=== PATIENT | male | born 1940 | race Caucasian/White ===

== ENCOUNTER → 2017-01-11 | Outpatient (CLI) | payer MEDICARE | LOC: MW.CHUR 11:07 | PROVIDERS: ATTEND Urology | DX: N40.0 Benign prostatic hyperplasia without lower urinary tract symptoms (principal); R97.20 Elevated prostate specific antigen [PSA] | CPT/HCPCS: 36415; 84153; G0463 ==

== ENCOUNTER 2025-08-31 09:12 | Inpatient (IN) | payer MEDICARE ==
[2025-08-31] MEDS ORDERED: Sodium Chloride 0.9% 2.5 ML Syringe FLUSH PRN ×2 (09:26→12:15)
[2025-08-31] MEDS ORDERED: Sodium Chloride 0.9% 10 ML Syringe FLUSH PRN ×2 (09:26→12:15)
[2025-08-31 09:38] LABS: MEAN PLATELET VOLUME 11.9 fL (9.4-12.4); NRBC ABSOLUTE 0.00 K/uL (0.00-0.02); NRBC PERCENT 0.0 /100WBC (0.0-0.2); PLATELET COUNT,PLT 96 K/uL (150-400); RED BLOOD CELL COUNT 4.04 M/uL (4.52-5.90); WHITE BLOOD CELL COUNT,WBC 1.49 K/uL (3.9-11.3)
[2025-08-31 09:54] LABS: INR 1.22 (0.86-1.11)
[2025-08-31] MEDS: Lactated Ringers 2,000 ML IV SCH (09:59)
[2025-08-31 10:00] LABS: LACTIC ACID 1.6 mmol/L (0.4-2.0)
[2025-08-31 10:01] LABS: A/G RATIO 0.9 (0.9-1.6); ALANINE AMINOTRANSFERASE,ALT 24 IU/L (14-63); ASPARTATE AMNIOTRANSFERASE,AST 24 IU/L (15-37); BILIRUBIN TOTAL 1.5 mg/dL (0.2-1.0); BLOOD UREA NITROGEN,BUN 18 mg/dL (7.0-18.0); CARBON DIOXIDE,CO2 30.2 mmol/L (21.0-32.0); CHLORIDE,CL 98 mmol/L (98-107); CREATININE 0.8 mg/dL (0.8-1.3); GLUCOSE RANDOM 125 mg/dL (74-106); POTASSIUM,K 4.0 mmol/L (3.5-5.1); PROTEIN TOTAL,TP 5.6 g/dL (6.4-8.2); SODIUM,NA 134 mmol/L (136-148)
[2025-08-31 10:05] LABS: ESTIMATED GFR 87 mL/min (>60)
[2025-08-31] MEDS: Iopamidol 755 Mg/ML 100 ML Bottle IVPUSH ONE (10:08)
[2025-08-31 10:15] LABS: LYMPHOCYTES ABSOLUTE MAN 0.58 K/uL (1.00-4.80); LYMPHOCYTES PERCENT MAN 39 % (24-44); MONOCYTES ABSOLUTE MAN 0.10 K/uL (0.00-0.80); MONOCYTES PERCENT MAN 7 % (0-8); SEG NEUTROPHILS ABSOLUTE MAN 0.80 K/uL (1.80-7.70); SEG NEUTROPHILS PERCENT MAN 54 % (41-71)
[2025-08-31 11:16] LABS: APPEARANCE,URINE CLEAR; GLUCOSE,URINE NEGATIVE (NEGATIVE); OCCULT BLOOD,URINE NEGATIVE (NEGATIVE)
[2025-08-31] MEDS: metroNIDAZOLE/Normal Saline 500 MG in Premix Bag 1 BAG IV ONE (11:31)
[2025-08-31] MEDS: Lactated Ringers 1,000 ML IV SCH (13:38)
[2025-08-31] MEDS: Norepinephrine Bit/D5W Premix 4 MG/250 ML BAG IV SCH (14:26)
[2025-08-31] MEDS: Diltiazem 120 MG Cap.CD PO SCH (15:27)
[2025-08-31] MEDS: Calcium Carbonate/Vitamin D3 1500 MG-400 Units Tab PO SCH (15:28)
[2025-08-31] MEDS: ABIRATERONE ACETATE 500 MG PO SCH (15:29)
[2025-08-31] MEDS: Phenol 1.4% Oral Spray 177 ML Bottle MUCMEM PRN (15:36)
[2025-08-31] MEDS: Pantoprazole 40 MG in Sodium Chloride 0.9% 20 ML IVPUSH SCH (16:13)
[2025-08-31] MEDS: Nystatin Susp 100,000 Unit/ML 5 ML UD Cup PO SCH (18:21)
[2025-08-31] MEDS: metroNIDAZOLE/Normal Saline 500 MG in Premix Bag 1 BAG IV SCH (18:30)
[2025-09-01] MEDS: Ondansetron 4 MG/2 ML SDV IVPUSH PRN (00:44)
[2025-09-01 05:51] LABS: MEAN PLATELET VOLUME 11.6 fL (9.4-12.4); NRBC ABSOLUTE 0.00 K/uL (0.00-0.02); NRBC PERCENT 0.0 /100WBC (0.0-0.2); PLATELET COUNT,PLT 84 K/uL (150-400); RED BLOOD CELL COUNT 3.41 M/uL (4.52-5.90); WHITE BLOOD CELL COUNT,WBC 1.24 K/uL (3.9-11.3)
[2025-09-01 06:14] LABS: A/G RATIO 0.8 (0.9-1.6); ALANINE AMINOTRANSFERASE,ALT 20.0 IU/L (14-63); ASPARTATE AMNIOTRANSFERASE,AST 25.0 IU/L (15-37); BILIRUBIN TOTAL 1.8 mg/dL (0.2-1.0); BLOOD UREA NITROGEN,BUN 12.0 mg/dL (7.0-18.0); CARBON DIOXIDE,CO2 29.7 mmol/L (21.0-32.0); CHLORIDE,CL 98.0 mmol/L (98-107); CREATININE 0.8 mg/dL (0.8-1.3); EST CRCL DRUG DOSING (CG) 70.97 mL/min; GLUCOSE RANDOM 102.0 mg/dL (74-106); POTASSIUM,K 3.2 mmol/L (3.5-5.1); PROTEIN TOTAL,TP 4.6 g/dL (6.4-8.2); SODIUM,NA 132.0 mmol/L (136-148)
[2025-09-01 06:15] LABS: ESTIMATED GFR 87.0 mL/min (>60)
[2025-09-01] MEDS: ABIRATERONE ACETATE 500 MG PO SCH (07:33)
[2025-09-01 07:43] LABS: SEG NEUTROPHILS ABSOLUTE MAN 0.63 K/uL (1.80-7.70); SEG NEUTROPHILS PERCENT MAN 51 % (41-71)
[2025-09-01 07:44] LABS: LYMPHOCYTES ABSOLUTE MAN 0.45 K/uL (1.00-4.80); LYMPHOCYTES PERCENT MAN 36 % (24-44); MONOCYTES ABSOLUTE MAN 0.16 K/uL (0.00-0.80); MONOCYTES PERCENT MAN 13 % (0-8)
[2025-09-01] MEDS ORDERED: Magnesium Sulfate 2 GM/50 mL 2 GM in Premix Bag 1 BAG IV SCH (08:30)
[2025-09-01] MEDS ORDERED: 50% Dextrose in Water 50 ML Syringe IVPUSH PRN (08:47)
[2025-09-01] MEDS: MAGNESIUM SULF IV ONE (09:10)
[2025-09-01] MEDS: POTASSIUM PHOSPHATES IV ONE (09:10)
[2025-09-01] MEDS: [UNRECOGNIZED DRUG - OTHER] IV ONE (09:10)
[2025-09-02 05:07] LABS: BORDETELLA PARAPERT IS1001 Not Detected (Not Detected)
[2025-09-02 06:33] LABS: MEAN PLATELET VOLUME 11.6 fL (9.4-12.4); NRBC PERCENT 0.0 /100WBC (0.0-0.2); PLATELET COUNT,PLT 78 K/uL (150-400); RED BLOOD CELL COUNT 3.10 M/uL (4.52-5.90); WHITE BLOOD CELL COUNT,WBC 1.22 K/uL (3.9-11.3)
[2025-09-02 07:03] LABS: A/G RATIO 0.7 (0.9-1.6); ALANINE AMINOTRANSFERASE,ALT 24.0 IU/L (14-63); ASPARTATE AMNIOTRANSFERASE,AST 34.0 IU/L (15-37); BILIRUBIN TOTAL 0.8 mg/dL (0.2-1.0); BLOOD UREA NITROGEN,BUN 10.0 mg/dL (7.0-18.0); CARBON DIOXIDE,CO2 27.8 mmol/L (21.0-32.0); CHLORIDE,CL 100.0 mmol/L (98-107); CREATININE 0.7 mg/dL (0.8-1.3); EST CRCL DRUG DOSING (CG) 81.11 mL/min; GLUCOSE RANDOM 106.0 mg/dL (74-106); PHOSPHORUS 1.4 mg/dL (2.6-4.7); POTASSIUM,K 3.5 mmol/L (3.5-5.1); PROTEIN TOTAL,TP 4.4 g/dL (6.4-8.2); SODIUM,NA 132.0 mmol/L (136-148)
[2025-09-02 07:09] LABS: ESTIMATED GFR 91.0 mL/min (>60)
[2025-09-02 08:11] LABS: BAND ABSOLUTE MAN 0.24; BAND PERCENT MAN 20 %; LYMPHOCYTES ABSOLUTE MAN 0.39 K/uL (1.00-4.80); LYMPHOCYTES PERCENT MAN 32 % (24-44); SEG NEUTROPHILS ABSOLUTE MAN 0.44 K/uL (1.80-7.70); SEG NEUTROPHILS PERCENT MAN 36 % (41-71)
[2025-09-02 08:12] LABS: METAMYELOCYTE ABSOLUTE MAN 0.04; METAMYELOCYTE PERCENT MAN 3 %; MONOCYTES ABSOLUTE MAN 0.11 K/uL (0.00-0.80); MONOCYTES PERCENT MAN 9 % (0-8); PLATELET COUNT ESTIMATE DECREASED; REACTIVE LYMPHOCYTES FEW
[2025-09-02] MEDS: Potassium Phosphates 45 MMOLE in Sodium Chloride 0.9% 500 ML IV ONE (09:26)
[2025-09-03 05:26] LABS: MEAN PLATELET VOLUME 11.5 fL (9.4-12.4); NRBC ABSOLUTE 0.00 K/uL (0.00-0.02); NRBC PERCENT 0.0 /100WBC (0.0-0.2); PLATELET COUNT,PLT 109 K/uL (150-400); RED BLOOD CELL COUNT 3.12 M/uL (4.52-5.90); WHITE BLOOD CELL COUNT,WBC 1.40 K/uL (3.9-11.3)
[2025-09-03 05:50] LABS: A/G RATIO 0.7 (0.9-1.6); ALANINE AMINOTRANSFERASE,ALT 25.0 IU/L (14-63); ASPARTATE AMNIOTRANSFERASE,AST 39.0 IU/L (15-37); BILIRUBIN TOTAL 0.8 mg/dL (0.2-1.0); BLOOD UREA NITROGEN,BUN 8.0 mg/dL (7.0-18.0); CARBON DIOXIDE,CO2 26.7 mmol/L (21.0-32.0); CHLORIDE,CL 101.0 mmol/L (98-107); CREATININE 0.6 mg/dL (0.8-1.3); EST CRCL DRUG DOSING (CG) 94.63 mL/min; GLUCOSE RANDOM 97.0 mg/dL (74-106); PHOSPHORUS 1.2 mg/dL (2.6-4.7); POTASSIUM,K 2.9 mmol/L (3.5-5.1); PROTEIN TOTAL,TP 4.3 g/dL (6.4-8.2); SODIUM,NA 133.0 mmol/L (136-148)
[2025-09-03 06:03] LABS: BAND ABSOLUTE MAN 0.08; BAND PERCENT MAN 6 %; LYMPHOCYTES ABSOLUTE MAN 0.39 K/uL (1.00-4.80); LYMPHOCYTES PERCENT MAN 28 % (24-44); METAMYELOCYTE ABSOLUTE MAN 0.03; METAMYELOCYTE PERCENT MAN 2 %; MONOCYTES ABSOLUTE MAN 0.14 K/uL (0.00-0.80); MONOCYTES PERCENT MAN 10 % (0-8); REACTIVE LYMPHOCYTES FEW; SEG NEUTROPHILS ABSOLUTE MAN 0.76 K/uL (1.80-7.70); SEG NEUTROPHILS PERCENT MAN 54 % (41-71)
[2025-09-03 06:19] LABS: ESTIMATED GFR 95.0 mL/min (>60)
[2025-09-03] MEDS ORDERED: Lidocaine 2% 30 ML, Alum Hydrox/Mag Hydrox/Simeth 30 ML, diphenhydrAMINE 75 MG PO PRN (10:09)
[2025-09-03] MEDS: Potassium Phosphates 30 MMOLE in Sodium Chloride 0.9% 500 ML IV SCH (11:02)
[2025-09-03] MEDS ORDERED: Potassium Chloride 20 MEQ Tab.ER PO ONE (14:00)
[2025-09-03 17:39] LABS: BLOOD UREA NITROGEN,BUN 7.0 mg/dL (7.0-18.0); CARBON DIOXIDE,CO2 26.3 mmol/L (21.0-32.0); CHLORIDE,CL 100.0 mmol/L (98-107); CREATININE 0.7 mg/dL (0.8-1.3); EST CRCL DRUG DOSING (CG) 81.11 mL/min; GLUCOSE RANDOM 118.0 mg/dL (74-106); PHOSPHORUS 2.4 mg/dL (2.6-4.7); POTASSIUM,K 3.8 mmol/L (3.5-5.1); SODIUM,NA 132.0 mmol/L (136-148)
[2025-09-03 17:40] LABS: ESTIMATED GFR 91.0 mL/min (>60)
[2025-09-03] MEDS: Lidocaine 2% 30 ML, Alum Hydrox/Mag Hydrox/Simeth 30 ML, diphenhydrAMINE 75 MG PO SCH (18:20)
[2025-09-04] MEDS: Lidocaine 2% 30 ML, Alum Hydrox/Mag Hydrox/Simeth 30 ML, diphenhydrAMINE 75 MG PO SCH (07:27)
[2025-09-04] MEDS: Relugolix [Orgovyx] 120 MG Tablet PO SCH (07:29)
[2025-09-04 07:40] LABS: MEAN PLATELET VOLUME 11.1 fL (9.4-12.4); NRBC ABSOLUTE 0.00 K/uL (0.00-0.02); NRBC PERCENT 0.0 /100WBC (0.0-0.2); PLATELET COUNT,PLT 141 K/uL (150-400); RED BLOOD CELL COUNT 3.43 M/uL (4.52-5.90); WHITE BLOOD CELL COUNT,WBC 1.86 K/uL (3.9-11.3)
[2025-09-04 07:58] LABS: BLOOD UREA NITROGEN,BUN 6.0 mg/dL (7.0-18.0); CARBON DIOXIDE,CO2 29.1 mmol/L (21.0-32.0); CHLORIDE,CL 103.0 mmol/L (98-107); CREATININE 0.7 mg/dL (0.8-1.3); EST CRCL DRUG DOSING (CG) 81.11 mL/min; GLUCOSE RANDOM 103.0 mg/dL (74-106); PHOSPHORUS 1.8 mg/dL (2.6-4.7); POTASSIUM,K 3.6 mmol/L (3.5-5.1); SODIUM,NA 137.0 mmol/L (136-148)
[2025-09-04 08:01] LABS: ESTIMATED GFR 91.0 mL/min (>60)
[2025-09-04 09:49] LABS: BAND ABSOLUTE MAN 0.04; BAND PERCENT MAN 2 %; LYMPHOCYTES ABSOLUTE MAN 0.20 K/uL (1.00-4.80); LYMPHOCYTES PERCENT MAN 11 % (24-44); MONOCYTES ABSOLUTE MAN 0.35 K/uL (0.00-0.80); MONOCYTES PERCENT MAN 19 % (0-8); MYELOCYTE ABSOLUTE MAN 0.02; MYELOCYTE PERCENT MAN 1 %; SEG NEUTROPHILS ABSOLUTE MAN 1.25 K/uL (1.80-7.70); SEG NEUTROPHILS PERCENT MAN 67 % (41-71)
[2025-09-04] MEDS: Diltiazem 120 MG Cap.CD PO ONE (10:04)
[2025-09-04] MEDS: Phosphorus #1 250 MG Tab PO SCH (10:09)
[2025-09-04] MEDS ORDERED: Phosphorus #1 250 MG Tab PO SCH (12:00)
[2025-09-05 05:42] LABS: MEAN PLATELET VOLUME 10.8 fL (9.4-12.4); NRBC ABSOLUTE 0.00 K/uL (0.00-0.02); NRBC PERCENT 0.0 /100WBC (0.0-0.2); PLATELET COUNT,PLT 145 K/uL (150-400); RED BLOOD CELL COUNT 3.28 M/uL (4.52-5.90); WHITE BLOOD CELL COUNT,WBC 2.24 K/uL (3.9-11.3)
[2025-09-05 06:10] LABS: A/G RATIO 0.6 (0.9-1.6); ALANINE AMINOTRANSFERASE,ALT 36.0 IU/L (14-63); ASPARTATE AMNIOTRANSFERASE,AST 54.0 IU/L (15-37); BILIRUBIN TOTAL 0.7 mg/dL (0.2-1.0); BLOOD UREA NITROGEN,BUN 7.0 mg/dL (7.0-18.0); CARBON DIOXIDE,CO2 28.4 mmol/L (21.0-32.0); CHLORIDE,CL 100.0 mmol/L (98-107); CREATININE 0.6 mg/dL (0.8-1.3); EST CRCL DRUG DOSING (CG) 94.63 mL/min; GLUCOSE RANDOM 101.0 mg/dL (74-106); PHOSPHORUS 1.7 mg/dL (2.6-4.7); POTASSIUM,K 2.8 mmol/L (3.5-5.1); PROTEIN TOTAL,TP 4.6 g/dL (6.4-8.2); SODIUM,NA 134.0 mmol/L (136-148)
[2025-09-05 06:12] LABS: ESTIMATED GFR 95.0 mL/min (>60)
[2025-09-05 06:38] LABS: BAND ABSOLUTE MAN 0.09; BAND PERCENT MAN 4 %; SEG NEUTROPHILS ABSOLUTE MAN 1.10 K/uL (1.80-7.70); SEG NEUTROPHILS PERCENT MAN 49 % (41-71)
[2025-09-05 06:39] LABS: METAMYELOCYTE ABSOLUTE MAN 0.07; METAMYELOCYTE PERCENT MAN 3 %; MONOCYTES ABSOLUTE MAN 0.60 K/uL (0.00-0.80); MONOCYTES PERCENT MAN 27 % (0-8)
[2025-09-05 06:40] LABS: LYMPHOCYTES ABSOLUTE MAN 0.38 K/uL (1.00-4.80); LYMPHOCYTES PERCENT MAN 17 % (24-44)
[2025-09-05 08:09] LABS: BLOOD UREA NITROGEN,BUN 7.0 mg/dL (7.0-18.0); CARBON DIOXIDE,CO2 27.4 mmol/L (21.0-32.0); CHLORIDE,CL 99.0 mmol/L (98-107); CREATININE 0.7 mg/dL (0.8-1.3); EST CRCL DRUG DOSING (CG) 81.11 mL/min; GLUCOSE RANDOM 130.0 mg/dL (74-106); POTASSIUM,K 2.9 mmol/L (3.5-5.1); SODIUM,NA 133.0 mmol/L (136-148)
[2025-09-05 08:10] LABS: ESTIMATED GFR 91.0 mL/min (>60)
[2025-09-05] MEDS: Diltiazem 120 MG Cap.CD PO SCH (08:17)
[2025-09-05] MEDS: Potassium Chloride 20 MEQ Tab.ER PO ONE (10:19)
[2025-09-05] MEDS ORDERED: Metoprolol Tartrate 5 MG/5 ML SDV IVPUSH PRN (14:05)
[2025-09-05 23:05] LABS: A/G RATIO 0.7 (0.9-1.6); ALANINE AMINOTRANSFERASE,ALT 37.0 IU/L (14-63); ASPARTATE AMNIOTRANSFERASE,AST 54.0 IU/L (15-37); BILIRUBIN TOTAL 0.5 mg/dL (0.2-1.0); BLOOD UREA NITROGEN,BUN 7.0 mg/dL (7.0-18.0); CARBON DIOXIDE,CO2 28.5 mmol/L (21.0-32.0); CHLORIDE,CL 103.0 mmol/L (98-107); CREATININE 0.8 mg/dL (0.8-1.3); EST CRCL DRUG DOSING (CG) 70.97 mL/min; GLUCOSE RANDOM 119.0 mg/dL (74-106); PHOSPHORUS 2.1 mg/dL (2.6-4.7); POTASSIUM,K 3.3 mmol/L (3.5-5.1); PROTEIN TOTAL,TP 4.4 g/dL (6.4-8.2); SODIUM,NA 136.0 mmol/L (136-148)
[2025-09-05 23:13] LABS: ESTIMATED GFR 87.0 mL/min (>60)
[2025-09-06] MEDS ORDERED: Potassium Chloride 20 MEQ Tab.ER PO ONE (01:10)
[2025-09-06] MEDS: Potassium Chloride 20 MEQ Tab.ER PO ONE (04:20)
[2025-09-06 06:24] LABS: MEAN PLATELET VOLUME 11.1 fL (9.4-12.4); NRBC ABSOLUTE 0.00 K/uL (0.00-0.02); NRBC PERCENT 0.0 /100WBC (0.0-0.2); PLATELET COUNT,PLT 140 K/uL (150-400); RED BLOOD CELL COUNT 3.11 M/uL (4.52-5.90); WHITE BLOOD CELL COUNT,WBC 3.18 K/uL (3.9-11.3)
[2025-09-06 06:44] LABS: A/G RATIO 0.8 (0.9-1.6); ALANINE AMINOTRANSFERASE,ALT 41.0 IU/L (14-63); ASPARTATE AMNIOTRANSFERASE,AST 65.0 IU/L (15-37); BILIRUBIN TOTAL 0.7 mg/dL (0.2-1.0); BLOOD UREA NITROGEN,BUN 5.0 mg/dL (7.0-18.0); CARBON DIOXIDE,CO2 27.6 mmol/L (21.0-32.0); CHLORIDE,CL 101.0 mmol/L (98-107); CREATININE 0.6 mg/dL (0.8-1.3); EST CRCL DRUG DOSING (CG) 94.63 mL/min; GLUCOSE RANDOM 102.0 mg/dL (74-106); PHOSPHORUS 1.5 mg/dL (2.6-4.7); POTASSIUM,K 2.8 mmol/L (3.5-5.1); PROTEIN TOTAL,TP 4.4 g/dL (6.4-8.2); SODIUM,NA 134.0 mmol/L (136-148)
[2025-09-06 06:55] LABS: ESTIMATED GFR 95.0 mL/min (>60)
[2025-09-06 07:43] LABS: LYMPHOCYTES ABSOLUTE MAN 0.57 K/uL (1.00-4.80); LYMPHOCYTES PERCENT MAN 18 % (24-44); MONOCYTES ABSOLUTE MAN 0.86 K/uL (0.00-0.80); MONOCYTES PERCENT MAN 27 % (0-8); SEG NEUTROPHILS ABSOLUTE MAN 1.75 K/uL (1.80-7.70); SEG NEUTROPHILS PERCENT MAN 55 % (41-71)
[2025-09-06] MEDS: Potassium Phosphates 30 MMOLE in Sodium Chloride 0.9% 500 ML IV ONE (09:28)
[2025-09-07 06:44] LABS: MEAN PLATELET VOLUME 11.3 fL (9.4-12.4); NRBC ABSOLUTE 0.02 K/uL (0.00-0.02); NRBC PERCENT 0.6 /100WBC (0.0-0.2); PLATELET COUNT,PLT 144 K/uL (150-400); RED BLOOD CELL COUNT 3.35 M/uL (4.52-5.90); WHITE BLOOD CELL COUNT,WBC 3.45 K/uL (3.9-11.3)
[2025-09-07 07:08] LABS: A/G RATIO 0.7 (0.9-1.6); ALANINE AMINOTRANSFERASE,ALT 43.0 IU/L (14-63); ASPARTATE AMNIOTRANSFERASE,AST 59.0 IU/L (15-37); BILIRUBIN TOTAL 0.7 mg/dL (0.2-1.0); BLOOD UREA NITROGEN,BUN 5.0 mg/dL (7.0-18.0); CARBON DIOXIDE,CO2 27.2 mmol/L (21.0-32.0); CHLORIDE,CL 103.0 mmol/L (98-107); CREATININE 0.7 mg/dL (0.8-1.3); EST CRCL DRUG DOSING (CG) 81.11 mL/min; GLUCOSE RANDOM 93.0 mg/dL (74-106); PHOSPHORUS 1.7 mg/dL (2.6-4.7); POTASSIUM,K 2.6 mmol/L (3.5-5.1); PROTEIN TOTAL,TP 4.5 g/dL (6.4-8.2); SODIUM,NA 137.0 mmol/L (136-148)
[2025-09-07 07:12] LABS: ESTIMATED GFR 91.0 mL/min (>60)
[2025-09-07 07:33] LABS: LYMPHOCYTES ABSOLUTE MAN 0.55 K/uL (1.00-4.80); LYMPHOCYTES PERCENT MAN 16 % (24-44); MONOCYTES ABSOLUTE MAN 0.86 K/uL (0.00-0.80); MONOCYTES PERCENT MAN 25 % (0-8); MYELOCYTE ABSOLUTE MAN 0.07; MYELOCYTE PERCENT MAN 2 %; SEG NEUTROPHILS ABSOLUTE MAN 1.97 K/uL (1.80-7.70); SEG NEUTROPHILS PERCENT MAN 57 % (41-71)
[2025-09-07] MEDS: Diltiazem 120 MG Cap.CD PO SCH (08:57)
[2025-09-07] MEDS: Potassium Chloride 20 MEQ Tab.ER PO ONE (09:02)
[2025-09-07] MEDS: Potassium Phosphates 30 MMOLE in Sodium Chloride 0.9% 500 ML IV ONE (09:26)
[2025-09-08 06:10] LABS: MEAN PLATELET VOLUME 10.9 fL (9.4-12.4); NRBC ABSOLUTE 0.00 K/uL (0.00-0.02); NRBC PERCENT 0.0 /100WBC (0.0-0.2); PLATELET COUNT,PLT 152 K/uL (150-400); RED BLOOD CELL COUNT 3.13 M/uL (4.52-5.90); WHITE BLOOD CELL COUNT,WBC 3.42 K/uL (3.9-11.3)
[2025-09-08 06:29] LABS: A/G RATIO 0.7 (0.9-1.6); ALANINE AMINOTRANSFERASE,ALT 31.0 IU/L (14-63); ASPARTATE AMNIOTRANSFERASE,AST 45.0 IU/L (15-37); BILIRUBIN TOTAL 0.7 mg/dL (0.2-1.0); BLOOD UREA NITROGEN,BUN 7.0 mg/dL (7.0-18.0); CARBON DIOXIDE,CO2 27.9 mmol/L (21.0-32.0); CHLORIDE,CL 102.0 mmol/L (98-107); CREATININE 0.7 mg/dL (0.8-1.3); EST CRCL DRUG DOSING (CG) 81.11 mL/min; GLUCOSE RANDOM 97.0 mg/dL (74-106); PHOSPHORUS 1.7 mg/dL (2.6-4.7); POTASSIUM,K 2.8 mmol/L (3.5-5.1); PROTEIN TOTAL,TP 4.4 g/dL (6.4-8.2); SODIUM,NA 135.0 mmol/L (136-148)
[2025-09-08 06:30] LABS: ESTIMATED GFR 91.0 mL/min (>60)
[2025-09-08 07:21] LABS: LYMPHOCYTES ABSOLUTE MAN 0.68 K/uL (1.00-4.80); LYMPHOCYTES PERCENT MAN 20 % (24-44); METAMYELOCYTE ABSOLUTE MAN 0.10; METAMYELOCYTE PERCENT MAN 3 %; MYELOCYTE ABSOLUTE MAN 0.10; SEG NEUTROPHILS ABSOLUTE MAN 1.78 K/uL (1.80-7.70); SEG NEUTROPHILS PERCENT MAN 52 % (41-71)
[2025-09-08 07:22] LABS: MONOCYTES ABSOLUTE MAN 0.86 K/uL (0.00-0.80); MONOCYTES PERCENT MAN 25 % (0-8)
[2025-09-08] MEDS: Potassium Phosphates 30 MMOLE in Sodium Chloride 0.9% 500 ML IV ONE (09:01)
[2025-09-08 09:02] VITALS: PULSE 102
[2025-09-08 16:39] VITALS: BP 110/60
== END 2025-09-08 15:30 | disposition home or self-care (01) | DRG 391 ==
LOC: MW.ED 09:12 → MW.ICU 12:15 → MW.MS 09-02 19:53
PROVIDERS: ADMIT Internal Medicine; ATTEND Family Medicine
PROC: 3E03329 Introduction of Other Anti-infective into Peripheral Vein, Percutaneous Approach (ICD-10-PCS; 2025-08-31)
PROC: 3E033XZ Introduction of Vasopressor into Peripheral Vein, Percutaneous Approach (ICD-10-PCS; 2025-08-31)
PROC: 03HY32Z Insertion of Monitoring Device into Upper Artery, Percutaneous Approach (ICD-10-PCS; principal; 2025-09-01)
PROC: 4A133B1 Monitoring of Arterial Pressure, Peripheral, Percutaneous Approach (ICD-10-PCS; 2025-09-01)
PROC: 4A133J1 Monitoring of Arterial Pulse, Peripheral, Percutaneous Approach (ICD-10-PCS; 2025-09-01)
PROC: 0T9B70Z Drainage of Bladder with Drainage Device, Via Natural or Artificial Opening (ICD-10-PCS; 2025-09-01)
DX: S00.01XA Abrasion of scalp, initial encounter (principal); K52.9 Noninfective gastroenteritis and colitis, unspecified; A41.9 Sepsis, unspecified organism; R57.1 Hypovolemic shock; C79.51 Secondary malignant neoplasm of bone; R65.21 Severe sepsis with septic shock; D84.9 Immunodeficiency, unspecified; C61 Malignant neoplasm of prostate; N52.9 Male erectile dysfunction, unspecified; T45.1X5A Adverse effect of antineoplastic and immunosuppressive drugs, initial encounter; R55 Syncope and collapse; K21.9 Gastro-esophageal reflux disease without esophagitis; I48.91 Unspecified atrial fibrillation; G89.29 Other chronic pain; Z79.899 Other long term (current) drug therapy; E83.51 Hypocalcemia; E11.9 Type 2 diabetes mellitus without complications; D70.1 Agranulocytosis secondary to cancer chemotherapy; D70.2 Other drug-induced agranulocytosis; M54.50 Low back pain, unspecified; D63.0 Anemia in neoplastic disease; D69.6 Thrombocytopenia, unspecified; K13.79 Other lesions of oral mucosa; E87.6 Hypokalemia; E83.39 Other disorders of phosphorus metabolism; R33.9 Retention of urine, unspecified; E83.42 Hypomagnesemia; Z92.21 Personal history of antineoplastic chemotherapy; Z92.3 Personal history of irradiation; Z79.84 Long term (current) use of oral hypoglycemic drugs; Y92.002 Bathroom of unspecified non-institutional (private) residence as the place of occurrence of the external cause; Z79.01 Long term (current) use of anticoagulants; W19.XXXA Unspecified fall, initial encounter; Z86.0100 Personal history of colon polyps, unspecified; Z98.890 Other specified postprocedural states
CPT/HCPCS: 36415; 70450; 71260; 74177; 80053; 81003; 83036; 83605; 83690; 84484; 85025; 85610; 87040 ×2; 87428; 93005; 96361; 96365; 96367; 99285; A9270; J0692; J2371; J7040; J7050; J7120; Q9967; 36620; 51702; 51798; 71045; 71045-26; 80048; 82947; 83735; 84100; 85007; 85027; 87045; 87046; 87324; 87449; 87486; 87581; 87633; 87899; 93010; 97110-GO; 97162-GP; 97165-GO; 97530-GP; 99223; 99232; 99233; 99239; J1642; J1815-GY; J1836; J2405; J2470; J3475; J3490; J7512